=== PATIENT | female | born 1975 | race Caucasian/White ===

== ENCOUNTER 2020-10-10 15:39 | Outpatient (REF) | payer BC, SELFPAY ==
[2020-10-11 05:02] LABS: Lyme Abs Screen <0.90 index
== END 2020-10-10 15:40 | disposition home or self-care (01) ==
LOC: HO.MANLDS 15:39
PROVIDERS: PCP Internal Medicine; Visit Provider Physician Assistant
DX: Z86.19 Personal history of other infectious and parasitic diseases (principal)
CPT/HCPCS: 36415; 86617; 86618

== ENCOUNTER 2024-10-25 11:08 | Outpatient (REF) | payer OTHER, SELFPAY ==
--- OUTSIDE RECORDS SUMMARY | 2024-10-25 12:38 | XMS_ITS | Data Portability ---
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 No REPORT PROGRAMMER concerns. UTD on screening and labs with PCP. Pap and cultures done. Not available 05/01/2015 14:15:26 06/22/2015 06/22/2015 40yo WF with Left labia cyst--most likely sebaceous cyst. Safe sex counseling. Recommended pt and new partner be tested for STIs. Remedies for skin rashes given, consider derm if no better. Not available 06/22/2015 17:16:16 10/28/2016 10/28/2016 41yo P0 healthy WWE. No REPORT PROGRAMMER concerns. UTD on screening and labs with PCP. Pap deferred. Discussed breast surveillance and will plan for mammo next year. RTO 1y prn Not available 10/28/2016 12:52:14 Plan of Treatment Reminders Order Date Submit Date Provider Last Modified By Organization Details Last Modified Time Details Appointments None recorded. Lab hsv (1+2) igg Ab, serum [email or web address] [facility] ([place]), [address] [place] [address], [place], [address], 6 14:13:05 hsv (1+2) igm, serum 2015 016 [facility] ([place]), [address] [facility] [address], [place], [address], 6 22:14:14 herpes simplex, culture, genital [address] Lab ([place]), [address] [facility] [address], [place], [address], 6 14:13:05 CT + NG DNA, PCR, cervical [address] Lab ([place]), [address] [place] [address] 1, [place], [address], 5 08:19:37 pap, IG + HR HPV 2014 015 [facility] ([place]), [address] [place] [address] 1, [place], [address], 5 05:26:03 culture, stool 2014 015 [facility] (Lab), [address] [place], [address], 5 12:20:19 TSH, serum or plasma 2014 015 [facility] (Lab), [address], [place], [address], 5 19:25:15 T4, free, serum 2014 015 [facility] (Lab), [address] [place], [address], 5 19:25:14 T3, free, serum or plasma 2014 015 [facility] (Lab), [address] [place], [address], 5 19:25:16 Referral gastroente rologist referral - schedule for sibo breath test 2014 015 tejinder Brito, [address] [place], [address], 5 07:49:[address]/dietiti an referral - halfway issues with yeast and ibs 2014 015 tripsuma Wei Ms Ldn, [address] [facility], [facility] [address], [place], [address], 5 07:50:22 gastroente rologist referral - Attention Kalani: bloating, diarrhea for a few years has tried eliminatio n diet with no results 2014 015 DESIREE Lucero MD, [address] [place], [address], 5 11:55:17 Procedures None recorded. Surgeries None recorded. Imaging US, abdomen complete 2014 015 [facility] (Central Scheduling), [address] [place], [address], 5 13:57:19 Medication Orders None recorded. Patient TargetsNo targets recorded. Patient Instructions Encounter Date Encounter Id Patient Instructions Last Modified By Organization Details Last Modified Time 08/07/2014 [id number] f/u? ? ? after tests mlevitan Not available 08/07/2014 15:00:09 11/16/2014 [id number] visit lasted 25 min and the majority of time was spent counseling on health problems,? ? ? f/u apt ? ? ?when I get yeast culture mlevitan Not available 11/16/2014 10:08:43 05/01/2015 [id number] Discussed health y lifestyle, diet, exercise, vitamins, contraception. REPORT PROGRAMMER screening and healthcare maintenance. Not available 05/01/2015 14:16:20 06/22/2015 [id number] Avoid perfumes, synthetic materials. Wash with plain warm water and pat dry or use math and science division chair on cool setting. Use probiotics. Call if symptoms worsen. Not available 06/22/2015 17:16:16 10/28/2016 [id number] Discussed health y lifestyle, diet, exercise, vitamins, contraception. REPORT PROGRAMMER screening and healthcare maintenance. Encouraged routine HCM w PCP and labs. 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 9 normal Not Available [address] [place] [address], [address], 08/07/2014 19:25:14 08/07/19 15 08/07/2014 TSH, serum or plasm a thyroid stimulating hormone 2.70 uIU/m L 0.55-4 .78 normal The TSH refer ence range has been adjus juan m on 2012 due to an alter ation in the TSH metho d. Not Available [address] [place] [address], 110[address], 08/07/2014 19:25:15 08/07/1908/07/2014 T3, free, serum or plasm a free T3 207 pg/dL 230-42 0 low Not Available [address] [place] [address], 17[address], 08/07/2014 19:25:16 08/15/19 15 08/17/2014 cultu re, stool stool culture,rout ine CULT COM normal Not Available [address] [place] [address], 216[address], 08/17/2014 12:25:21 08/15/19 15 08/17/2014 cultu re, stool stool culture,rout ine NO SALMON AUNG, SHIGEL LA OR CAMPYL OBACTE R ISOLAT ED normal Not Available [address] [place] [address], 17473, 08/17/2014 12:25:21 08/15/19 15 08/17/2014 cultu re, stool stool culture,rout ine Not Available [address] [facility] Station [address] [place] [address], [address], 08/17/2014 12:25:21 08/15/19 15 08/15/2014 shiga toxin s (1+2) , stool shiga toxins 1 & 2 Shiga toxin 1 and Shiga toxin 2 not detect ed Not Available [address] [place] [address], 37[address], 08/17/2014 12:25:23 08/15/19 15 08/21/2014 yeast , organ ism speci fic cultu re, unspe cifie d speci men yeast id CULT COM normal Not Available [address] [place] [address], 28[address], 08/21/2014 12:15:14 08/15/19 15 08/21/2014 yeast , organ ism speci fic cultu re, unspe cifie d speci men yeast id NO YEAST ISOLAT ED normal Not Available [address] [place] [address], 04855, 08/21/2014 12:15:14 08/15/19 15 08/21/2014 yeast , organ ism speci fic cultu re, unspe cifie d speci men yeast id Not Available [address] [place] [address], 244[address], 08/21/2014 12:15:14 08/16/19 15 08/19/2014 yeast , organ ism speci fic cultu re, unspe cifie d speci men yeast id CULT COM normal Not Available [address] [place] [address], 613[address], 08/19/2014 09:57:13 08/16/19 15 08/19/2014 yeast , organ ism speci fic cultu re, unspe cifie d speci men yeast id NO YEAST ISOLAT ED normal Not Available [address] [place] [address], 80443, 08/19/2014 09:57:13 08/16/19 15 08/19/2014 yeast , organ ism speci fic cultu re, unspe cifie d speci men yeast id Not Available [address] [place] [address], 33648, 08/19/2014 09:57:13 08/16/19 15 08/18/2014 cultu re, stool stool culture,rout ine CULT COM normal Not Available [address] [place] [address], 00141, 08/18/2014 13:01:17 08/16/19 15 08/18/2014 cultu re, stool stool culture,rout ine NO SALMON AUNG, SHIGEL LA OR CAMPYL OBACTE R ISOLAT ED normal Not Available [address] [place] [address], 46[address], 08/18/2014 13:01:17 08/16/19 15 08/18/2014 cultu re, stool stool culture,rout ine Not Available [address] [facility] Station [address] [place] [address], [address], 08/18/2014 13:01:17 11/11/19 15 11/10/2014 CBC WBC count 5.5 K/mm3 4.0-11 .0 normal Not Available [address] [place] [address], 75282, 11/10/2014 18:45:16 11/11/19 15 11/10/2014 CBC red blood cell count 4.24 M/uL 4.00-5 .50 normal Not Available [address] [place] [address], 94265, 11/10/2014 18:45:16 11/11/19 15 11/10/2014 CBC hemoglobin 13.8 gm/dL 12.0-1 6.0 normal Not Available [address] [place] [address] [facility] [address] [place] [address], 34[address], 11/10/2014 18:45:16 11/11/1911/10/2014 CBC hematocrit 40.5 % 37.0-4 7.0 normal Not Available [address] [place] [address] [facility] [address] [place] [address], 600[address], 11/10/2014 18:45:16 11/11/1911/10/2014 CBC MCV 95.4 fL 83-96 normal Not Available [address] [place] [address], [address], 11/10/2014 18:45:16 11/11/1911/10/2014 CBC RDW 12.3 % 11.5-1 6.0 normal Not Available [address] [place] [address], [address], 11/10/2014 18:45:16 11/11/1911/10/2014 CBC plt count 266 K/uL 140-44 0 normal Not Available [address] [place] [address], [address], 11/10/2014 18:45:16 11/11/1911/10/2014 CBC ne# 3.6 K/uL 1.5-7. 5 normal Not Available [address] [place] [address], [address], 11/10/2014 18:45:16 11/11/1911/10/2014 CBC ly# 1.3 K/uL 1.0-4. 5 normal Not Available [address] [place] [address], [address], 11/10/2014 18:45:16 11/11/1911/10/2014 CBC MO# 0.4 K/uL 0.0-0. 8 normal Not Available [address] [place] [address], [address], 11/10/2014 18:45:16 11/11/1911/10/2014 CBC eo# 0.2 K/uL 0.0-0. 4 normal Not Available [address] [place] [address], 8101[address], 11/10/2014 18:45:16 11/11/1911/10/2014 CBC ba# 0.0 K/uL 0.0-0. 2 normal Not Available [address] [place] [address], 01777, 11/10/2014 18:45:16 11/11/1911/10/2014 CBC ne% 65.1 % normal Not Available [address] [place] [address], 49835, 11/10/2014 18:45:16 11/11/1911/10/2014 CBC ly% 24.2 % normal Not Available [address] [place] [address], 73977, 11/10/2014 18:45:16 11/11/1911/10/2014 CBC MO% 7.3 % normal Not Available [address] [place] [address], 90568, 11/10/2014 18:45:16 11/11/1911/10/2014 CBC eo% 2.9 % normal Not Available [address] [place] [address], 72514, 11/10/2014 18:45:16 11/11/1911/10/2014 CBC ba% 0.4 % normal Not Available [address] [place] [address], 96395, 11/10/2014 18:45:16 11/11/1911/10/2014 CMP, serum or plasm a glucose 90 mg/dL 70-109 normal Not Available [address] [place] [address], 00238, 11/10/2014 16:10:29 11/11/1911/10/2014 CMP, serum or plasm a BUN 12 mg/dL 4-18 normal Not Available [address] [place] [address], 15151, 11/10/2014 16:10:11/11/19 15 11/10/2014 CMP, serum or plasm a creatinine 0.74 mg/dL 0.0-1. 2 normal Not Available [address] [place] [address] [facility] [address] [place] [address], 937[address], 11/10/2014 16:10:11/11/19 15 11/10/2014 CMP, serum or plasm a glomerular filtration rate > 60 normal Units : mL/mi n/1.7 3 m2 Estim ated GFR (eGFR ) shoul d not be used for patie nts with acute kidne y injur y or ESRD (crea tinin e shoul d be at stead y state and stabl e to use). eGFR is calcu lated using the 2009 CKD-E PI creat inine equat ion, which is now the recom south d equat ion to estim ate GFR based on creat inine per lates t KDIGO (Kidn ey Disea se Impro ving Globa l Outco mes) Guide lines . KDIGO recom mends CKD now be class ified based on cause , GFR categ ory, and album inuri a categ ory. GFR categ ories will not be repor juan m by the lab for G1 or G2 (eGFR >60). GFR categ ories shoul d be assig juan miguel as: eGFR 45-59 = G3a (mild ly to moder ately decre ased) , eGFR 30-44 = G3b (mode ratel y to sever facundo decre ased) , eGFR 15-29 G4 (jyotsna rely decre ased) , eGFR< 15 G5 (kidn ey failu re). Not Available [address] [place] [address], [address], 11/10/2014 16:10:11/11/1911/10/2014 CMP, serum or plasm a calcium 8.3 mg/dL 8.5-10 .1 low Delta : 9.6 on 11/09-1 010 Not Available [address] [place] [address], [address]79[address], 11/10/2014 16:10:29 11/11/1911/10/2014 CMP, serum or plasm a total protein 7.5 g/dL 6.2-8. 2 normal Effec tive 5: Plelan ashraf note the refer ence range for this test has trace ed. Exact pedia tric range s are not estab lishe d, but tend to be lower than adult range s. Not Available [address] [place] [address] [facility] [place] [address] [place] [address], 73754, 11/10/2014 16:10:11/11/1911/10/2014 CMP, serum or plasm a albumin 4.0 g/dL 2.9-4. 7 normal Effec tive 015: The Album in metho d woodward ed from a BCG to a BCP metho d. Resul ts will be appro ximat facundo 0.4 g/dL lower than the old metho d. Rachel ashraf note the woodward e in the refer ence range . Not Available [address] [place] [address] [facility] [address] [place] [address], 427[address], 11/10/2014 16:10:11/11/1911/10/2014 CMP, serum or plasm a alkaline phosphatase 56 IU/L 18-210 normal Not Available [address] [place] [address], 05995, 11/10/2014 16:10:11/11/19 15 11/10/2014 CMP, serum or plasm a SGOT (AST) 14 IU/L 15-37 low Effec tive 5: Rachel ashraf note the refer ence range for this test has trace san. Not Available [address] [place] [address] [facility] [address] [place] [address], 645[address], 11/10/2014 16:10:11/11/1911/10/2014 CMP, serum or plasm a bilirubin total 0.3 mg/dL 0.2-1. 3 normal Not Available [address] [place] [address] [facility] [address] [place] [address], 48885, 11/10/2014 16:10:11/11/1911/10/2014 CMP, serum or plasm a SGPT (ALT) 18 IU/L 13-56 normal Not Available [address] [place] [address], 46483, 11/10/2014 16:10:29 11/11/19 15 11/10/2014 CMP, serum or plasm a sodium 138 mEq/L 135-14 5 normal Not Available [address] [place] [address], 48732, 11/10/2014 16:10:11/11/19 15 11/10/2014 CMP, serum or plasm a potassium 3.9 mEq/L 3.5-5. 1 normal Not Available [address] [place] [address], 10401, 11/10/2014 16:10:11/11/19 15 11/10/2014 CMP, serum or plasm a chloride 104 mEq/L 98-112 normal Not Available [address] [place] [address], 80962, 11/10/2014 16:10:29 11/11/19 15 11/10/2014 CMP, serum or plasm a CO2 25 mEq/L 20-32 normal Not Available [address] [place] [address], 21792, 11/10/2014 16:10:29 11/11/19 15 11/10/2014 CMP, serum or plasm a anion gap 9 mEq/L 5-15 normal Not Available [address] [place] [address], 93782, 11/10/2014 16:10:29 11/11/19 15 11/10/2014 ESR (eryt hrocy te sedim entat ion rate) , blood ESR 13 mm/HR 0-20 normal Not Available [address] [place] [address], 21467, 11/10/2014 18:45:17 11/11/19 15 11/13/2014 lyme disea se DNA, PCR, unspe cifie d speci men lyme disease DNA PCR, blood Not Detect ed not detect ed normal This test was devel oped and its perfo rmanc e chon cteri stics have been deter mined by [facility], [place], [place]. It has not been clear ed or appro wilma by the U.S. Food and Drug Admin istra tion. The FDA has deter mined that such clear ance or appro marielos is not neces olivia. Perfo rmanc e chon cteri stics refer to the arleen tical perfo rmanc e of the test. THIS TEST WAS PERFO RMED AT: [facility] [address] [place], [place] TITO ELDER MD,P HD Not Available [address] [place] [address], 39148, 11/13/2014 06:03:38 11/11/19 15 11/13/2014 lyme disea se igg+i gm Ab, serum lyme total Ab (IgG+IgM), serum NEGATI VE negati ve normal No antib lindsey to Borre shanna Burgd orfer i detec juan m. False negat reyna may occur . Sugge st repea t if clini ash indic ated. Not Available [address] [place] [address], 30654, 11/13/2014 14:07:22 11/11/19 15 11/17/2014 lyme igg + igm Ab, weste rn blot, serum 18kDa IgG NONREA CTIVE nonrea ctive normal Not Available [address] [place] [address], 08626, 11/17/2014 15:52:23 11/11/19 15 11/17/2014 lyme igg + igm Ab, weste rn blot, serum 23kDa IgG NONREA CTIVE nonrea ctive normal Not Available [address] [place] [address], 00093, 11/17/2014 15:52:23 11/11/19 15 11/17/2014 lyme igg + igm Ab, weste rn blot, serum 28kDa IgG NONREA CTIVE nonrea ctive normal Not Available [address] [place] [address], 57364, 11/17/2014 15:52:23 11/11/19 15 11/17/2014 lyme igg + igm Ab, weste rn blot, serum 30kDa IgG NONREA CTIVE nonrea ctive normal Not Available [address] [place] [address], 59497, 11/17/2014 15:52:23 11/11/19 15 11/17/2014 lyme igg + igm Ab, weste rn blot, serum 39kDa IgG NONREA CTIVE nonrea ctive normal Not Available [address] [place] [address], 68771, 11/17/2014 15:52:23 11/11/19 15 11/17/2014 lyme igg + igm Ab, weste rn blot, serum 41kDa IgG NONREA CTIVE nonrea ctive normal Not Available [address] [place] [address], 18628, 11/17/2014 15:52:23 11/11/19 15 11/17/2014 lyme igg + igm Ab, weste rn blot, serum 45kDa IgG NONREA CTIVE nonrea ctive normal Not Available [address] [place] [address], 14116, 11/17/2014 15:52:23 11/11/19 15 11/17/2014 lyme igg + igm Ab, weste rn blot, serum 58kDa IgG NONREA CTIVE nonrea ctive normal Not Available [address] [place] [address], 33898, 11/17/2014 15:52:23 11/11/19 15 11/17/2014 lyme igg + igm Ab, weste rn blot, serum 66kDa IgG NONREA CTIVE nonrea ctive normal Not Available [address] [place] [address], 89021, 11/17/2014 15:52:23 11/11/19 15 11/17/2014 lyme igg + igm Ab, weste rn blot, serum 93kDa IgG NONREA CTIVE nonrea ctive normal Not Available [address] [place] [address], 93003, 11/17/2014 15:52:23 11/11/19 15 11/17/2014 lyme igg + igm Ab, weste rn blot, serum interpretati on IgG NEGATI VE negati ve normal IgG weste rn blots which have 5 (or more) of the 10 signi fican t bands are consi dered posit yo for speci fic antib lindsey to B. burgd orfer i. (Proc eedin gs of the 2nd Conf. on Lyme Disea se, [place], [place], 1994. ) Not Available [address] [place] [address], 40453, 11/17/2014 15:52:23 11/11/19 15 11/17/2014 lyme igg + igm Ab, weste rn blot, serum 23kDa IgM NONREA CTIVE nonrea ctive normal Not Available [address] [place] [address], 62183, 11/17/2014 15:52:23 11/11/19 15 11/17/2014 lyme igg + igm Ab, weste rn blot, serum 39kDa IgM NONREA CTIVE nonrea ctive normal Not Available [address] [place] [address], 51676, 11/17/2014 15:52:23 11/11/19 15 11/17/2014 lyme igg + igm Ab, weste rn blot, serum 41kDa IgM NONREA CTIVE nonrea ctive normal Not Available [address] [place] [address], 18918, 11/17/2014 15:52:23 11/11/19 15 11/17/2014 lyme igg + igm Ab, weste rn blot, serum interpretati on IgM NEGATI VE negati ve normal IgM weste rn blots which have 2 (or more) of the 3 signi fican t bands are consi dered posit yo for speci fic antib lindsey to B. burgd orfer i. (Proc eedin gs of the 2nd Conf. on Lyme Disea se, [place], [place], 1994. ) Not Available [address] [place] [address], 32147, 11/17/2014 15:52:23 11/11/19 15 11/17/2014 lyme igg + igm Ab, tony rn blot, serum lyme WB interpretati on IgG Neg, IgM Neg normal Not Available [address] [place] [address], 51605, 11/17/2014 15:52:23 11/11/19 15 11/17/2014 lyme igg + igm Ab, tony rn blot, serum reviewed by Pacheco dinero MD normal Not Available [address] [place] [address], 33994, 11/17/2014 15:52:23 05/01/20 15 05/02/2015 CT RNA, qual, PCR, unspe cifie d speci men specimen type SWAB-F EMALE normal Endoc ervic al speci mens conta ining Reple ns produ ct may give inval id or false negat yo resul ts. Not Available [address] [place] [address], 50550, 05/02/2015 08:39:08 05/01/20 15 05/02/2015 CT RNA, qual, PCR, unspe cifie d speci men specimen type SWAB-F EMALE normal Endoc ervic al speci mens conta ining Reple ns produ ct may give inval id or false negat yo resul ts. Not Available [address] [place] [address], 40003, 05/02/2015 08:39:08 05/01/20 15 05/02/2015 CT RNA, qual, PCR, unspe cifie d speci men specimen type SWAB-F EMALE normal Endoc ervic al speci mens conta ining Reple ns produ ct may give inval id or false negat yo resul ts. Not Available [address] [place] [address], 34675, 05/03/2015 12:34:11 05/01/20 15 05/02/2015 CT RNA, qual, PCR, unspe cifie d speci men specimen type SWAB-F EMALE normal Endoc ervic al speci mens conta ining Reple ns produ ct may give inval id or false negat yo resul ts. Not Available [address] [place] [address] [facility] [place] [address], 35677, 05/03/2015 12:34:11 05/01/20 15 05/03/2015 chlam ydia trach omati s RNA, PCR, anal chlamydia trachomatis by PCR Negati ve negati ve normal To preve nt error s in diagn osis, test resul ts shoul d be inter prete d in the josias xt of clini robby findi ngs and other labor atory data. Not Available [address] [place] [address] [facility] [place] [address], 43443, 05/03/2015 12:34:12 05/01/20 15 05/03/2015 NG DNA, PCR, unspe cifie d speci men neisseria gonorrhea by PCR Negati ve negati ve normal To preve nt error s in diagn osis, test resul ts shoul d be inter prete d in the josias xt of clini robby findi ngs and other labor atory data. Not Available [address] [place] [address] [facility] [place] [address], 82624, 05/03/2015 12:34:13 06/22/19 16 06/27/2015 hsv (1+2) igm, serum hsv-1 IgM Ab Negati ve negati ve normal Not Available [address] [place] [address] [place] [address], 71178, 06/27/2015 22:14:14 06/22/19 16 06/27/2015 hsv (1+2) igm, serum hsv-2 IgM Ab Negati ve negati ve normal The IFA proce dure for measu ring IgM antib odies to HSV 1 and HSV 2 detec ts both type- commo n and type- speci fic HSV antib odies . Thus, IgM react ivity to both HSV 1 and HSV 2 may repre sent cross react yo HSV antib odies rathe r than expos ure to both HSV 1 and HSV 2. This test was devel oped and its arleen tical perfo rmanc e chon cteri stics have been deter mined by [facility], [place], [place]. It has not been clear ed or appro wilma by the FDA. This assay has been valid ated pursu ant to the CLIA regul ation s and is used for clini robby purpo ses. THIS TEST WAS PERFO RMED AT: [facility] [address] [place], [place] TITO ELDER MD,P HD Not Available [address] [place] [address] [address] [place] [address], 07283, 06/27/2015 22:14:14 06/22/19 16 06/29/2015 herpe s simpl ex, cultu re, unspe cifie d speci men hsv culture w/reflex to type FROM: From: [facility], [place] [address] normal Not Available [address] [place] [address] [address] [place] [address], 11297, 06/29/2015 15:33:30 06/22/19 16 06/29/2015 herpe s simpl ex, cultu re, unspe cifie d speci men hsv culture w/reflex to type HERPES CULTUR E NO HERPES SIMPLE X DETECT ED normal Not Available [address] [place] [address] [address] [place] [address], 11563, 06/29/2015 15:33:30 06/22/19 16 06/29/2015 herpe s simpl ex, cultu re, unspe cifie d speci men hsv culture w/reflex to type Not Available [facility] Drawing Station [address] [place] [address], 10387, 06/29/2015 15:33:30 08/17/19 15 08/16/2014 US, abdom en compl ete No observ ation record ed. [facility] ([facility]) [address] [place], [address], 11/16/2014 10:02:25 Result Notes Documentation Provider Name and Address Organization Details Recorded Time Pap, Ig + Hr Hpv : Neg pap and HPV Kathleen Montero MD [address] [place] [address], [id number], [facility] [employer] 06/22/2015 17:16:16 Problems Name Problem SNOMED Code Status Onset Date Resolution Date Notes Provider Name and Address Organization Details Recorded Time Vitamin D deficien cy 26954203 Active Jazzmine Hernandezevaag Anp [address] [place] [address], [phone], [facility] 4 14:45:26 Disorder of vitamin B12 531270587 Completed 08/07/2014 Peggy Ambriz MD [address] [place] [address], [phone], [facility] 5 14:41:27 Abnormal vaginal bleeding 135745237 Active Gino Ballard MD [address] [place] [address], [phone], [facility] 4 13:49:42 HPV - Human papillom avirus test positive Active Jazzmine Hernandezevaag Anp [address] [place] [address], [address], [facility] 4 14:45:26 Hypothyr oidism 89274200 Active Peggy Ambriz MD [address] [place] [address], [phone], [facility] 5 15:18:52 Iron deficien cy 93881244 Completed 08/07/2014 Peggy Ambriz MD [address] [place] [address], [phone], [facility] 5 14:42:18 Disorder of tonsil (palatin e tonsil) 44223811 Completed 08/07/2014 Peggy Ambriz MD [address] [place] [address], [address], [facility] 5 14:41:27 Stomach cramps 35018486 Completed 08/07/2014 Peggy Ambriz MD [address] [place] [address], [address], [facility] 5 14:41:27 Lymphade nopathy 35845444 Completed 08/07/2014 Peggy Ambriz MD [address] [place] [address], [address], [facility] 5 14:41:27 Herpes zoster 8175254 Active Jazzmine Hernandezevaag Anp [address] [place] [address], [phone], [facility] 4 16:44:40 Fatigue 23450349 Active Jazzmine Hernandezevaag Anp [address] [place] [address], [address], [facility] 4 16:44:40 Irritabl e bowel syndrome 68148654 Active Peggy Ambriz MD [address] [place] [address], [address], [facility] 5 10:09:02 Exhausti on 33495611 Active Sylvia Wise RN [facility] 5 11:39:15 Vulvitis 95177833 Active Kathleen Montero MD [address] [place] [address], [address],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
--- OUTSIDE RECORDS SUMMARY | 2024-10-25 12:38 | XMS_ITS | Data Portability ---
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 and lateral joint line recommended f/u XRs, ?meniscus tear vs collateral ligament tearACL and PCL seem intact based on exam POPEYE DARBY [address] [place], [address], [facility] 08/23/2024 12:17:47 10/26/19 25 text/htm l AnemiaReported bypatient.Timing:better Associated Symptoms:no shortness of breath; no chest pain; no abdominal pain; no nausea; no vomiting; no melena; no blood in stool; no weakness; no fatigue; no palpitations; no excessive sweating; normal nails; tolerant of cold; no nonfood cravings; no behavior problems; no symptoms of peripheral neuropathy; normal balance; no jaundice; no pallor; no weight lossAnnual WellnessReported bypatient.Diet and Nutrition:healthy diet Fracture Risk:no history of fractures; no recent explained fracture; no sudden unexplained fractures; no previous musculoskeletal injuries Physical Activity:exercises on a regular basis; recent increase in physical activity; good physical condition Additional Lifestyle Factors:no tobacco use; no alcohol intake; stopped drinking alcohol Depression Risk:never feels sad, empty, or tearful; no loss of interest in activities; no significant changes in weight; no sleep disturbances or insomnia; no agitation; no loss of energy; no feelings of worthlessness or guilt; no thoughts of suicide; no history of depression; no history of mood disorders Hearing:no loss of hearing Vision:no vision problemsCare Management - Acquired HypothyroidismReported bypatient.Medication Education:understands administration; understands effect of concurrent medications; understands missed doses; understands consequences of noncompliance Associated Symptoms:no abnormal weight gain; no tiredness; no dry skin; no cold intolerance; no constipation; no diarrhea; no goiter Jj Huston, DO [address] [place], [address], [facility] 10/25/2024 11:06:48 OBGyn Episode No OBEpisode recorded.
--- OUTSIDE RECORDS SUMMARY | 2024-10-25 12:38 | XMS_ITS | Continuity of Care Document ---
Author Organization [facility], [facility] Address [address] [place] [address] Assessment No assessment recorded. Plan of Treatment Reminders Order Date Submit Date Provider Last Modified By Organization Details Last Modified Time Details Appointments ANNUAL EXAM 2024 10:30A M DR HUSTON Not available Not available Not available Lab TSH, serum or plasma 2024 025 [facility], [address] [place] [address], [place], [address], 10/25/2024 11:08:17 Referral None recorded . Procedures None recorded . Surgeries None recorded . Imaging None recorded . Medication Orders None recorded . Patient TargetsNo targets recorded. Patient InstructionsNo instructions recorded. Reason for Referral None Reported. Problems Name Problem SNOMED Code Status Onset Date Resolution Date Notes Provider Name and Address Organization Details Recorded Time COVID-19 538427720 Active 2021 Not Available [facility] 2 11:04:11 Injury of tendon of the rotator cuff of shoulder 502823199 Active 2022 Jj Huston, [address] [place] [address], [address], [place] [facility] 3 22:03:37 Injury of tendon of the rotator cuff of shoulder 961636800 Active 2022 Jj Huston DO [address] [place] [address], [address], [place] [facility] 3 22:03:45 Menorrhag ia 374718544 Active 2022 Jj Huston DO [address] [place] [address], [phone], [facility] [place] [facility] 3 15:14:23 Anemia 075879607 Active 2022 POPEYE DARBY [address] [place] [address], [address], [facility] [place] [facility] 3 10:39:54 Iron deficienc y 54084633 Active 2022 Jj Huston, DO [address] [place] [address], [address], [facility] [place] [facility] 3 21:14:05 Depressiv e disorder 14714061 Active 2023 Jj Huston DO [address] [place] [address], [address], [facility] [place] [facility] 4 10:43:33 Fatigue 67014595 Active 2023 Jj Huston DO [address] [place] [address], [address], [facility] [place] [facility] 4 10:51:06 Cobalamin deficienc y 022883989 Active 2023 Jj Huston DO [address] [place] [address], [address], [facility] [place] [facility] 4 20:45:57 Aphthous ulcer of mouth 329083733 Active 2023 POPEYE DARBY [address] [place] [address], [address], [facility] [place] [facility] 4 10:41:50 Cough 75254985 Active 2024 [address]uston [address], [address], [facility] [place] [facility] 5 11:13:10 Hypothyro idism 61290969 Active 2017 Not Available [facility] 2 11:04:11 Vitamin D deficienc y 67222721 Active 2017 Not Available [facility] 2 11:04:11 Irritable bowel syndrome 08053498 Active 2017 Not Available [facility] 2 11:04:11 Pain of left knee joint 242817562799 107 Active 2024 POPEYE DARBY [address] [place], [address], [facility] [place] [facility] 5 12:07:38 Pain of left ankle joint 409700510546 47901 Active 2024 POPEYE DARBY [address] [place], [address], [facility] [place] [facility] 5 12:08:05 Problem Notes None recorded. Procedures Surgical History Date Name Laterality Status Provider Name and Address Organization Details Recorded Time 03/15/20 15 Date of Last Pap Smear completed Kristine Chapin NP, [address] [place] [address], [phone], [facility] [place] [facility] 03/03/2018 10:27:27 10/19/19 15 Colonoscopy completed Kristine Chapin NP, Rudi [address] [place] [address], [address], [facility] [place] [facility] 03/02/2018 14:02:19 06/15/18 86 Appendectomy completed Kristine Chapin NP, S [address] [place] [address], [phone], [facility] [place] [facility] 03/02/2018 14:03:19 Imaging Results None recorded. Procedure Notes None recorded. Medical Equipment None [...] Not Available Not Available No t Available Rain's wort .7 ml 1 dropper 4 times [...] Available Not Available Vitals Date Recorded Body height Body mass index (BMI) Body weight Heart rate Oxygen saturation Oxygen saturation in Arterial blood by Pulse oximetry Systolic blood pressure Diastolic blood pressure Provider Name and Address Organization Details Last Updated DateTime 5 171.45 cm 22.7 kg/m2 61164.0 8 g 71 /min 99 % 99 % 118 mm[Hg] 68 mm[Hg] Jj Huston, DO [address] [place], [address] [place] [address] Internal Medicine 5 10:38:28 Social History Question Answer Notes LastModified by [facility] Details LastModified Time Tobacco Smoking Status Never Smoker Sera Chadwick [facility] 12/22/2017 11:55:00 What Is Your Level Of Caffeine Consumption? Occasional 1 Cup Per Day Information not available 02/09/2018 What Was The Date Of Your Most Recent Tobacco Screening? 10/25/2024 [email or web address] Information not available 10/25/2024 Sex: Unknown Functional Status Question Answer Note LastModified by [facility] Details LastModified Time What is your level [...] Mother Mental disorder anxiet y, depres candida [email or web address] Not available 03/02/2018 14:04:39 Medical History No [...] Immunizations Vaccine Type Date Status Note Provider Nam e and Address Organization Details Recorded Time Tdap 0 completed Naomy barrios [facility] 01/14/2021 11:55:43 COVID-19, mRNA, LNP-S, PF, 100 mcg/0.5mL dose or 50 mcg/0.25mL dose 1 completed Katherine barrios [facility] 07/14/2023 10:27:27 COVID-19, mRNA, LNP-S, PF, 100 mcg/0.5mL dose or 50 mcg/0.25mL dose 1 completed Katherine barrios [facility] 07/14/2023 10:27:27 Td (adult) 9 completed Naomy barrios [facility] 01/14/2021 11:56:20 COVID-19, mRNA, LNP-S, PF, 100 mcg/0.5mL dose or 50 mcg/0.25mL dose 2 completed Katherine barrios [facility] 07/14/2023 10:27:27 Influenza, split virus, quadrivalent, preservative 2 completed Katherine barrios [facility] 07/14/2023 10:27:27 SARS-COV-2 (COVID-19) vaccine, UNSPECIFIED 4 completed Quin barrios, [facility] 05/04/2024 08:02:32 influenza, unspecified formulation 4 completed Quin barrios, [facility] 05/04/2024 08:02:40 Hep B, adult 8 completed Naomy Gold null, [facility] 08/25/2018 08:52:39 Influenza, MDCK, quadrivalent, PF 8 completed Katherine barrios, [facility] 07/14/2023 10:27:27 Influenza, split virus, quadrivalent, preservative 0 completed Katherine Boudreaux [facility] 07/14/2023 10:27:27 Past Encounters Encounter ID Performer Location Encounter Start Date Encounter Closed Date Diagnosis/Indication Diagnosis SNOMED-CT Code Diagnosis ICD10 Code Diagnosis Note [id number] Jj Huston [facility] [address] [address] 10/25/2024 10:35:00 10/25/2024 11:09:49 Active or passive immunization 829192119 Z23 utd Hypothyroidism 99832296 E03.9 will rechk tsh today vit d as well Iron deficiency 51157061 E61.1 Well adult 242683127 Z00 .00 here for annual doing well\excep t for her left shoulder this has been very sore at times Health Concerns Section Related Observation LastModified by Organization Detai ls LastModified Time None Recorded Concern Status LastModified by Organization Details LastModified Time None Recorded Payers Encounter Date Sequence Insurance Name Policy Number Policy Shaffer Covered Member ID Shaffer Member ID Guarantor Name 10/25/2024 1 [facility] [employer] [facility] - DIRECT CONNECTORCARE TYPE I (HMO) [id number] Jennifer Strange [id number] Jennifer Strange Notes Date Note Type Note Provider Name and Address Organization Details Recorded Time 10/26/19 25 text/htm l AnemiaReported bypatient.Timing:better Associated [...] diarrhea; no goiter Jj Huston, DO [address] [place], [address], [facility] [place] [facility] 10/25/2024 11:06:48 OBGyn Episode No OBEpisode recorded.
[2024-10-25 14:16] LABS: Thyroid Stimulating Hormone 0.87 uIU/mL (0.32-4.0)
== END 2024-10-25 11:09 | disposition home or self-care (01) ==
LOC: HO.MANLDS 11:08
PROVIDERS: Visit Provider Internal Medicine
DX: E03.9 Hypothyroidism, unspecified (principal)
CPT/HCPCS: 36415; 84443